=== PATIENT | male | born 1940 | race African-American/Black ===

== ENCOUNTER 2016-12-25 09:08 | Emergency (ER) | payer BC ==
[~2016-12-25] VITALS: Ht 182.9 cm; Wt 78.9 kg
[2016-12-25] MEDS ORDERED: hydrALAZINE 20 MG/ML VIAL. IVP ONE (10:00)
[2016-12-25] MEDS ORDERED: 0.9 % SODIUM CHLORIDE 10 ML DISP.SYRIN. IV PRN (10:00)
--- NOTE | 2016-12-25 10:02 | PHYS DOC ---
Past Medical History Past Medical History: Hypertension Past Surgical History: No Surgical History Alcohol Use: Heavy Additional Information: "I drink beer about everyday." Drug Use: Marijuana Adult General Chief Complaint Chief Complaint: HYPERTENSION HPI HPI Patient is a 76 year old male with an established history of hypertension, comes to the emergency room today with complaint of "high blood pressure" and feeling sluggish for the past 3-4 days. Patient states that he had been feeling , "under the weather and sluggish" for the past 3-4 days. He states that he went to the nurse's office and had his blood pressure checked and was informed that his "top number" was over 200. Patient states that he takes losartan in the morning and "a little 10 mg white pill" at bedtime. He denies any changes to his blood pressure medication within the past 30 days. Patient denies headache, visual disturbances, tinnitus. He denies chest pain, palpitations, exertional dyspnea, orthopnea or PND. He denies focal areas of weakness or altered sensation. He states that he comes to the emergency room today at the advice of the school nurse who checked his blood pressure. Review of Systems Review of Systems Constitutional: Denies fever or chills [] Eyes: Denies change in visual acuity, redness, or eye pain [] HENT: Denies nasal congestion or sore throat [] Respiratory: Denies cough or shortness of breath [] Cardiovascular: No additional information not addressed in HPI [] GI: Denies abdominal pain, nausea, vomiting, bloody stools or diarrhea [] : Denies dysuria or hematuria [] Musculoskeletal: Denies back pain or joint pain [] Integument: Denies rash or skin lesions [] Neurologic: Denies headache, focal weakness or sensory changes [] Endocrine: Denies polyuria or polydipsia [] Current Medications Current Medications Current Medications Medications (Trade) Dose Ordered Sig/Iza Start Time Stop Time Status Last Admin Dose Admin Hydralazine HCl (Apresoline) 10 mg 1X ONCE 12/25/16 10:00 12/25/16 10:01 DC 12/25/16 10:24 10 MG Sodium Chloride (Normal Saline Flush) 10 ml QSHIFT PRN 12/25/16 10:00 12/25/16 11:53 DC 12/25/16 10:30 10 ML Allergies Allergies Allergies Coded Allergies Type Severity Reaction Last Updated Verified No Known Drug Allergies 12/25/16 No Physical Exam Physical Exam Constitutional: Well developed, well nourished, no acute distress, non-toxic appearance. Patient's blood pressure 224/80. HENT: Normocephalic, atraumatic, bilateral external ears normal, oropharynx moist, no oral exudates, nose normal. Eyes: PERRLA, EOMI, conjunctiva normal, no discharge. Direct funduscopic exam shows no evidence of papilledema. Neck: Normal range of motion, no tenderness, supple, no stridor. No JVD. Cardiovascular:Heart rate 58 with regular rhythm, grade 2/6 murmur. PMI slightly displaced laterally. Lungs & Thorax: There is no respiratory distress respiratory fatigue. There is no posturing or sensory muscle use. Lungs are clear auscultation bilaterally. Abdomen: Bowel sounds normal, soft, no tenderness, no masses, no pulsatile masses. [] Skin: Warm, dry, no erythema, no rash. [] Back: No tenderness, no CVA tenderness. [] Extremities: No tenderness, no cyanosis, no clubbing, ROM intact, no edema. [] Neurologic: Alert and oriented X 3, cranial nerves II through XII are intact. Patient is able perform rapid alternating movement and [id number] without difficulty. Romberg is negative for pronator drift. Psychologic: Affect normal, judgement normal, mood normal. [] Current Patient Data Vital Signs Vital Signs Date Time Temp Pulse Resp B/P Pulse Ox O2 Delivery O2 Flow Rate FiO2 12/25/16 11:43 68 19 187/95 98 Room Air 12/25/16 09:25 97.8 97.8 Lab Values Laboratory Tests Test 12/25/16 10:15 White Blood Count 5.9x10^3/uL (4.0-11.0) Red Blood Count 4.36x10^6/uL (4.30-5.70) Hemoglobin 13.9g/dL (13.0-17.5) Hematocrit 41.5% (39.0-53.0) Mean Corpuscular Volume 95fL (79-100) Mean Corpuscular Hemoglobin 32pg (25-35) Mean Corpuscular Hemoglobin Concent 34g/dL (31-37) Red Cell Distribution Width 13.7% (11.5-14.5) Platelet Count 244x10^3/uL (140-400) Neutrophils (%) (Auto) 63% (31-73) Lymphocytes (%) (Auto) 26% (24-48) Monocytes (%) (Auto) 10% (0-9) H Eosinophils (%) (Auto) 1% (0-3) Basophils (%) (Auto) 1% (0-3) Neutrophils # (Auto) 3.7x10^3uL (1.8-7.7) Lymphocytes # (Auto) 1.5x10^3/uL (1.0-4.8) Monocytes # (Auto) 0.6x10^3/uL (0.0-1.1) Eosinophils # (Auto) 0.1x10^3/uL (0.0-0.7) Basophils # (Auto) 0.1x10^3/uL (0.0-0.2) Prothrombin Time 13.1SEC (11.7-14.0) Prothrombin Time INR 1.1 (0.8-1.1) Sodium Level 141mmol/L (136-145) Potassium Level 3.9mmol/L (3.5-5.1) Chloride Level 105mmol/L (98-107) Carbon Dioxide Level 27mmol/L (21-32) Anion Gap 9 (6-14) Blood Urea Nitrogen 17mg/dL (8-26) Creatinine 1.8mg/dL (0.7-1.3) H Estimated GFR (Cockcroft-Gault) 44.9 Glucose Level 115mg/dL (70-99) H Calcium Level 9.1mg/dL (8.5-10.1) Magnesium Level 2.2mg/dL (1.8-2.4) Total Bilirubin 0.6mg/dL (0.2-1.0) Direct Bilirubin 0.1mg/dL (0.0-0.2) Aspartate Amino Transferase (AST) 17U/L (15-37) Alanine Aminotransferase (ALT) 25U/L (16-63) Alkaline Phosphatase 78U/L (46-116) Creatine Kinase 131U/L (39-308) Creatine Kinase MB (Mass) 1.2ng/mL (0.0-3.6) Creatine Kinase MB Relative Index 0.9% (0-4) Troponin I Quantitative < 0.017ng/mL (0.000-0.055) Total Protein 7.4g/dL (6.4-8.2) Albumin 3.3g/dL (3.4-5.0) L Laboratory Tests 12/25/16 10:15 Laboratory Tests 12/25/16 10:15 EKG EKG [] Radiology/Procedures Radiology/Procedures Portable AP chest without evidence of acute cardiac abnormality. Course & Med Decision Making Course & Med Decision Making Patient's had an uncomplicated stay in the emergency department. He's had no episodes of headache, visual disturbances, tinnitus, chest pain, palpitations or shortness of breath. He denies any numbness or tingling or focal weakness peripherally. We discussed patient calling his primary care doctor today to schedule follow- up appointment to discuss further blood pressure management. Dragon Disclaimer Dragon Disclaimer This electronic medical record was generated, in whole or in part, using a voice recognition dictation system. Departure Departure Impression: Primary Impression: Hypertension Disposition: 01 HOME, SELF-CARE Condition: GOOD Referrals: Bertha SANDERS MD (PCP) Patient Instructions: Hypertension, [id number] Additional Instructions: 1. Check your blood pressure 3 times a day and document the blood pressure finding. Do not check it multiple times, even if you don't like which her blood pressure reading is. Keep this "blood pressure diary" and take it to your primary care doctor for your follow-up. 2. Review the discharge instructions provided for self-care and reasons to return to the emergency department. 3. Call your primary care doctor's office afternoon to schedule follow-up appointment. RADHA ACUNA Dec 25, 2016 10:02
--- NOTE | 2016-12-25 10:24 | EKG ---
[facility] [address] [place] [id number] Test Date: 2016-12-25 Test Time: 10:15:06 Pat Name: SHAKIR SCHMID Department: Room: Gender: M Senior Media Director: : 1940 Requested By: RADHA ACUNA Order Number: [id number] Reading MD: Measurements Intervals [place] Rate: 48 P: 149 NC: 168 QRS: -170 QRSD: 82 T: 159 QT: 440 QTc: 396 Interpretive Statements SINUS BRADYCARDIA ABNORMAL RIGHT SUPERIOR AXIS DEVIATION T ABNORMALITY IN HIGH LATERAL LEADS INFERIOR LEADS ABNORMAL ECG RI6.01 No previous ECG available for comparison
[2016-12-25 10:31] LABS: BASO # 0.1 x10^3/uL (0.0-0.2); BASO % 1 % (0-3); EOS % 1 % (0-3); HEMATOCRIT 41.5 % (39.0-53.0); HEMOGLOBIN 13.9 g/dL (13.0-17.5); LYMPH # 1.5 x10^3/uL (1.0-4.8); LYMPH % 26 % (24-48); MEAN CORPUSCULAR HEMOGLOBIN 32 pg (25-35); MEAN CORPUSCULAR HGB CONC 34 g/dL (31-37); MEAN CORPUSCULAR VOLUME 95 fL (79-100); MONO % 10 % (0-9); NEUT % 63 % (31-73); PLATELET COUNT 244 x10^3/uL (140-400); RED BLOOD COUNT 4.36 x10^6/uL (4.30-5.70); RED CELL DISTRIBUTION WIDTH 13.7 % (11.5-14.5); WHITE BLOOD COUNT 5.9 x10^3/uL (4.0-11.0)
--- NOTE | 2016-12-25 10:53 | ACF ---
Admission Forms Criteria HYPERTENSION Clinical Indications for Admission to Inpatient Care ( Place "X" for any and all applicable criteria): Admission is indicated for ANY ONE of the following(1)(2)(3)(4): [ ]I. Hypertensive emergency, with evidence of acute and progressing target organ disease as indicated by ANY ONE of the following: [ ]a) Hypertensive encephalopathy (eg, confusion, altered mental status) [ ]b) Cerebral infarction [ ]c) Intracranial hemorrhage [ ]d) Myocardial ischemia or infarction [ ]e) Pulmonary edema [ ]f) Aortic dissection [ ]g) Seizure [ ]h) Acute renal insufficiency [ ]i) Papilledema [ ]j) Microangiopathic hemolytic anemia [ ]II. Adrenergic crisis (eg, severe hypertension due to pheochromocytoma crisis, cocaine or amphetamine intoxication, or clonidine withdrawal) [X]III. Severe hypertension (SBP greater than 180 mmHg or DBP greater than 110 mmHg or greater than the 95th percentile for age, gender, and height in pediatric patients) that cannot be controlled (eg, to SBP less than 160 mmHg and DBP less than 100 mmHg in adults) by treatment with oral medication in emergency department or observation care Extended stay beyond goal length of stay may be needed for(11)(12)(13): [ ]a) Persistent hypertensive encephalopathy [ ]b) Continuation of pulmonary edema [ ]c) Recurring or persistent severe hypertension [ ]d) Target organ damage (eg, angina, stroke, aortic dissection) [ ]e) Associated renal insufficiency The original [employer] content created by [employer] has been revised. The portions of the content which have been revised are identified through the use of italic text or in bold, and [facility] has neither reviewed nor approved the modified material. All other unmodified content is copyright [facility] [employer]. Please see references footnoted in the original [facility] [employer] edition 2016 Admission Criteria Met?: Yes DARIEL DAVID Dec 25, 2016 10:53
--- NOTE | 2016-12-25 10:54 | RAD ---
Portable chest, 12/25/2016: History: Feeling sluggish Comparison is made to a study from 10/02/2008. The heart size and pulmonary vascularity are normal. There is calcific plaquing of the aorta. No pulmonary infiltrates are seen. There is no evidence of pleural fluid. Mild spurring is present in the spine. IMPRESSION: No acute cardiopulmonary abnormality is detected.
[2016-12-25 10:57] LABS: INR 1.1 (0.8-1.1); PROTHROMBIN TIME PATIENT 13.1 SEC (11.7-14.0)
[2016-12-25 10:58] LABS: CALCIUM 9.1 mg/dL (8.5-10.1); CREATININE 1.8 mg/dL (0.7-1.3); GFR 44.9; POTASSIUM 3.9 mmol/L (3.5-5.1)
[2016-12-25 11:08] LABS: ALBUMIN 3.3 g/dL (3.4-5.0); DIRECT BILIRUBIN 0.1 mg/dL (0.0-0.2); MAGNESIUM 2.2 mg/dL (1.8-2.4); TOTAL BILIRUBIN 0.6 mg/dL (0.2-1.0); TOTAL PROTEIN 7.4 g/dL (6.4-8.2)
[2016-12-25 11:34] LABS: CKMB INDEX 0.9 % (0-4); CKMB MASS 1.2 ng/mL (0.0-3.6)
[2016-12-25 11:43] VITALS: BP 187/95
== END 2016-12-25 11:52 | disposition home or self-care (01) ==
LOC: ER 09:08
DX: I10 Essential (primary) hypertension (principal); F10.10 Alcohol abuse, uncomplicated; Y90.9 Presence of alcohol in blood, level not specified; F12.10 Cannabis abuse, uncomplicated
CPT/HCPCS: 36415; 71010; 80048; 80076; 82550; 82553; 83735; 84484; 85027; 85610; 93005; 96374; 96375; 99285; J0360